=== PATIENT | female | born 1995 ===

== ENCOUNTER 2019-12-09 04:19 | Inpatient (IN) ==
[2019-12-09] MEDS ORDERED: LACTATED RINGERS 1,000 ML IV SCH ×2 (05:00→08:30)
[2019-12-09] MEDS ORDERED: ONDANSETRON 4 MG/2 ML VIAL IV PRN ×2 (05:00→08:11)
[2019-12-09] MEDS ORDERED: OXYTOCIN/LR 20 UNIT/1,000 ML BAG IV PRN (05:00)
[2019-12-09] MEDS ORDERED: MAGNESIUM SULF DRIP 40 GM/1,000 ML ML IV SCH ×2 (05:00→08:15)
[2019-12-09] MEDS ORDERED: MEPERIDINE 50 MG/1 ML VIAL IV PRN (05:00)
[2019-12-09] MEDS ORDERED: PROMETHAZINE 25 MG/1 ML VIAL IM ONE (05:05)
[2019-12-09 05:46] LABS: Basophils % 0.3 % (0.0-0.8); Eosinophils # 0.1 10*3/uL (0.0-0.87); Hematocrit 35.4 VOL% (35.7-47.0); Hemoglobin 11.8 GM/DL (12.0-16.0); Immature Granulocytes % 0.4 %; Immature Granulocytes Absolute 0.03 #; Lymphocytes # 1.7 10*3/uL (1.4-4.0); Lymphocytes % 24.4 % (21.3-54.2); Mean Corpuscular HGB Conc 33.3 GM/DL (32-36); Mean Corpuscular Volume 86.3 FL (87-102); Mean Platelet Volume 11.1 FL (9.6-12.0); Monocytes % 6.3 % (1.7-12.7); Neutrophils % 66.6 % (38.7-73.9); Platelet Count 247 T/CUMM (130-400)
[2019-12-09 06:03] LABS: INR 0.8; PT Patient Result 9.2 SECS (9.6-12.2); Partial Thromboplastin Time 28.5 SECS (20.8-36.0)
[2019-12-09 06:04] LABS: Alanine Aminotransferase 10 U/L (13-56); Alkaline Phosphatase 134 U/L (45-117); Aspartate Amino Transferase 11 U/L (0-37); Bilirubin,Total < 0.39 MG/DL (0.2-1.0); Blood Urea Nitrogen 10 MG/DL (7-18); Calcium 8.5 MG/DL (8.5-10.1); Estimated Glom Filtration Rate 184 ML/MIN; Glucose 83 MG/DL (74-106); Osmolality,Calculated 274.5 MOS/KG (273-304); Total Protein 6.2 G/DL (6.4-8.3)
[2019-12-09] MEDS ORDERED: FAMOTIDINE 20 MG/2 ML VIAL IV ONE (06:04)
[2019-12-09] MEDS ORDERED: ceFAZolin 3,000 MG in SYRINGE 1 EACH IV ONE (06:04)
[2019-12-09] MEDS ORDERED: CITRIC ACID/SODIUM CITRATE 30 ML UDCUP PO ONE (06:04)
[2019-12-09] MEDS ORDERED: OXYTOCIN/LR 20 UNIT/1,000 ML BAG IV ONE ×2 (06:05→08:11)
[2019-12-09 06:06] LABS: Apearance,Urine CLEAR (Clear); Bilirubin,Urine Negative (Negative); Blood, Urine Small mg/dL (Negative); Glucose,Urine (UA) Negative (Negative); Ketones,Urine Negative (Negative); Mucus,Urine Many /LPF (Occasional); Nitrite,Urine Negative (Negative); Protein,Urine 30 MG/DL; RBC,Urine 16 /HPF (0-4); Squamous Epithelial Cell,Urine Occasional /HPF (0-10); Urine Color Yellow (Yellow); Urine Specific Gravity 1.027 (1.001-1.035); WBC,Urine 1 /HPF (0-6)
[2019-12-09] MEDS ORDERED: fentaNYL 100 MCG/2 ML VIAL ONE (06:34)
[2019-12-09] MEDS ORDERED: PHENYLEPHRINE 1 MG/10 ML SYRINGE IV ONE (06:34)
[2019-12-09] MEDS ORDERED: BUPIVACAINE SPINAL 0.75% 2 ML AMP SPINAL ONE (06:35)
[2019-12-09] MEDS ORDERED: MORPHINE 10 MG/10 ML VIAL ONE (06:35)
[2019-12-09] MEDS ORDERED: KETOROLAC 60 MG/2 ML VIAL IM ONE (06:35)
[2019-12-09] MEDS ORDERED: OXYTOCIN/LR 30 UNIT/1,000 ML BAG IV ONE (06:45)
[2019-12-09] MEDS ORDERED: OXYTOCIN 10 UNIT/ML VIAL IM ONE (06:50)
[2019-12-09 08:10] LABS: Cord Venous Blood HCO3 23.3 MMOL/L; Cord Venous Blood PCO2 47.6 MMHG
[2019-12-09] MEDS ORDERED: ACETAMINOPHEN 325 MG TABLET PO PRN (08:11)
[2019-12-09] MEDS ORDERED: RHO(D) IMMUNE GLOBULIN 300 MCG SYRINGE IM ONE (08:11)
[2019-12-09 12:40] LABS: Hematocrit 34.2 VOL% (35.7-47.0); Hemoglobin 11.3 GM/DL (12.0-16.0)
[2019-12-09] MEDS ORDERED: ceFAZolin 1,000 MG in SYRINGE 1 EACH IV SCH (14:00)
[2019-12-09] MEDS ORDERED: KETOROLAC 30 MG/1 ML VIAL IV SCH (14:00)
[2019-12-09] MEDS ORDERED: diphenhydrAMINE 50 MG/1 ML VIAL IV PRN (14:46)
[2019-12-09] MEDS ORDERED: HYDROmorphone 2 MG/1 ML VIAL IV PRN (14:46)
[2019-12-09] MEDS ORDERED: hydrOXYzine HCL 25 MG/1 ML VIAL IM PRN (14:46)
[2019-12-09] MEDS: SIMETHICONE CHEW 80 MG TABLET PO PRN (14:47)
[2019-12-09] MEDS: DOCUSATE SODIUM 100 MG CAPSULE PO SCH (22:15)
[2019-12-10] MEDS ORDERED: ceFAZolin 1,000 MG in SYRINGE 1 EACH IV SCH (03:00)
[2019-12-10 08:39] LABS: Basophils % 0.4 % (0.0-0.8); Eosinophils # 0.1 10*3/uL (0.0-0.87); Eosinophils % 1.7 % (0.00-10.9); Hematocrit 30.5 VOL% (35.7-47.0); Hemoglobin 10.2 GM/DL (12.0-16.0); Immature Granulocytes % 0.3 %; Immature Granulocytes Absolute 0.02 #; Lymphocytes # 1.3 10*3/uL (1.4-4.0); Lymphocytes % 17.2 % (21.3-54.2); Mean Corpuscular HGB Conc 33.4 GM/DL (32-36); Mean Corpuscular Volume 86.2 FL (87-102); Mean Platelet Volume 10.5 FL (9.6-12.0); Monocytes % 6.1 % (1.7-12.7); Neutrophils % 74.3 % (38.7-73.9); Platelet Count 220 T/CUMM (130-400); Red Blood Count 3.54 MC/CUMM (3.8-5.5); Red Cell Distribution Width 12.3 % (9.3-17.3); White Blood Count 7.6 T/CUMM (4-12)
[2019-12-10] MEDS: SIMETHICONE CHEW 80 MG TABLET PO PRN (09:47)
[2019-12-10] MEDS: MULTIVITAMIN (PRENATAL) TABLET PO SCH (09:47)
[2019-12-10] MEDS: MAGNESIUM HYDROXIDE SUSP 30 ML UDCUP PO PRN ×2 (09:47→19:40)
[2019-12-10] MEDS: DOCUSATE SODIUM 100 MG CAPSULE PO SCH ×2 (09:47→19:40)
[2019-12-10] MEDS: METOCLOPRAMIDE 10 MG TABLET PO SCH ×2 (11:20→19:40)
[2019-12-10] MEDS: FUROSEMIDE 40 MG/4 ML VIAL IV SCH ×2 (18:08→23:31)
[2019-12-10] MEDS: IBUPROFEN 800 MG TABLET PO PRN (19:40)
[2019-12-11] MEDS: IBUPROFEN 800 MG TABLET PO PRN (05:58)
[2019-12-11] MEDS ORDERED: FUROSEMIDE 40 MG TABLET PO SCH ×2 (06:00→12:00)
[2019-12-11 07:22] VITALS: BP 125/60
[2019-12-11] MEDS: MULTIVITAMIN (PRENATAL) TABLET PO SCH (10:00)
[2019-12-11] MEDS: DOCUSATE SODIUM 100 MG CAPSULE PO SCH (10:00)
[2019-12-11] MEDS ORDERED: MEASLES/MUMPS/RUBELLA VACCINE 0.5 ML VIAL SUBCUT ONE (11:39)
== END 2019-12-11 14:20 | disposition home or self-care (01) | DRG 788 ==
LOC: N.LDOUT 04:19 → N.LD 04:20 → N.OB 12-10 08:14
PROVIDERS: ADMIT Obstetrics & Gynecology; ATTEND Obstetrics & Gynecology
PROC: LDCSECT (ICD-10-PCS; 2019-12-09 06:30)